=== PATIENT | male | born 1975 | race African-American/Black ===

== ENCOUNTER 2019-01-30 16:06 | Inpatient (IN) | payer OTHER, SELFPAY ==
[2019-01-30] MEDS ORDERED: Lorazepam 2 MG/ML VIAL ONE (17:24)
[2019-01-30 17:30] LABS: #Eosinphils 0.2 thou/uL (0.0-0.7); #Lymphocytes 1.1 thou/uL (1.20-3.40); #Monocytes 0.6 thou/uL (0.11-0.59); #Neutrophils 2.4 thou/uL (1.40-6.50); %Eosinophils 4.3 % (0.0-10.0); %Lymphocytes 25.8 % (21.0-51.0); %Monocytes 13.5 % (0.0-10.0); %Neutrophils 56.3 % (42.0-75.0); Hemoglobin 16.5 g/dL (14.0-18.0); Mean Corpuscular HGB CONC 32.7 g/dL (32.0-36.0); Mean Corpuscular Hemoglobin 29.7 pg (27.0-31.0); Mean Corpuscular Volume 90.8 fL (78.0-98.0); Mean Platelet Volume 9.6 fL (7.4-10.4); Platelet Count 178 thou/uL (130-400); RBC Distribution Width 11.9 % (11.5-14.5); Red Blood Cell (RBC) Count 5.56 mill/uL (4.70-6.10); White Blood Cell (WBC) Count 4.3 thou/uL (4.8-10.8)
[2019-01-30 18:01] LABS: ALT (SGPT) 23 U/L (8-55); AST (SGOT) 42 U/L (5-34); Acetaminophen Less than 6.0 mcg/mL (10.0-30.0); Albumin 4.8 g/dL (3.5-5.0); Alcohol Less than 10 mg/dL (Less than 10); Alkaline Phosphatase 40 U/L (40-150); Anion Gap 15 mmol/L (10-20); BUN (Urea Nitrogen) 15 mg/dL (8.9-20.6); Bilirubin, Total 1.2 mg/dL (0.2-1.2); Calc. Creatinine Clearance 0 mL/min (70-130); Carbon Dioxide 25 mmol/L (22-29); Chloride 101 mmol/L (98-107); Estimated GFR-MDRD 80; Globulin 3.7 g/dL (2.4-3.5); Glucose 63 mg/dL (70-105); Potassium 4.9 mmol/L (3.5-5.1); Protein, Total 8.5 g/dL (6.0-8.3); Salicylate Less than 8.0 mg/dL (15.0-30.0); Sodium 136 mmol/L (136-145)
--- NOTE | 2019-01-30 18:40 | CT ---
CT OF BRAIN PERFORMED WITHOUT CONTRAST ENHANCEMENT: 01/30/19 HISTORY: Altered mental status. History of a brain tumor. COMPARISON: 09/07/08 study. The ventricles and sulci appear within normal limits. There is a large sellar and suprasellar mass th at measures 2.6 cm in AP dimension. There is no hemorrhage. There is no shift of midline structures. The mastoid air cells are clear. There is mucosal change in both maxillary sinuses. IMPRESSION: Large sellar/suprasellar mass. No acute intracranial abnormalities. POS: CHENG
[2019-01-30] MEDS ORDERED: Ondansetron PF 4 MG/2 ML Vial IVP PRN (23:29)
[2019-01-30] MEDS ORDERED: Acetaminophen 325 MG TAB PO PRN (23:29)
[2019-01-30] MEDS ORDERED: Ondansetron ODT 4 MG TAB PO PRN (23:29)
[2019-01-31] VITALS: BMI 28.3
--- NOTE | 2019-01-31 03:35 | HP ---
PRIMARY CARE DOCTOR: Dr. Zara Soares. CODE STATUS: Full code. TIME OF EVALUATION: 10:35 p.m. CHIEF COMPLAINT: Change in mental status. HISTORY OF PRESENT ILLNESS: This is a [id number]-male patient past medical history of brain tumor, was diagnosed 1 month ago. The patient symptoms have been always having change in mental status, but the mom is stating that the patient has become gradually worsened with severe changes in mentation, the patient had a scheduled appointment for Oncology in February, but due to severity of the symptoms, they have decided to come to the ER. REVIEW OF SYSTEMS: Unable to obtain. The patient is confused. ALLERGIES: LATEX. SOME FOOD ALLERGIES REPORTED-unclear. FAMILY HISTORY: Reviewed and non contributory to current presentation. PMHX: negative other than recently diagnosed brain tumor Sx Hx: no Sx Hx Social Hx: no drugs,alcohol,smoking history. REPORTED MEDICATIONS: Unknown. PHYSICAL EXAMINATION: VITAL SIGNS: On presentation, blood pressure 139/88 with heart rate of 92, respiratory rate was 16, temperature 98.6, pain 0/10, oxygen saturation was 96% on room air. GENERAL APPEARANCE: The patient is confused, disoriented, not in acute distress. HEENT: Eyes, normal conjunctivae. . Moist oral mucosa. Anicteric. NECK: No JVD. RESPIRATORY: : Bilateral air entry. No rales. No wheezes. Symmetric expansion. CARDIOVASCULAR: Normal rate. Regular rhythm. No murmurs. No gallop. No edema. ABDOMEN: Soft. Normal bowel sounds. MUSCULOSKELETAL: Baseline range of motion and strength. No tenderness. SKIN: Warm, intact. No pallor, rash, or redness. Peripheral pulses are present. Capillary refill seems to intact. NEUROLOGIC: The patient has change in mental status, unable to fully explore. However, patient follows commands and also has bilateral glaze grinder. No significant focal weakness has been seen during my examination. PSYCHIATRIC: The patient is confused, unable to fully explore. IMAGING: EKG was reviewed. The patient has normal sinus rhythm with a rate of 83, CO 198, QRS 100, QT corrected 408, early repolarization. Brain CT was done, the patient had a large suprasellar mass. No acute intracranial abnormalities. LABORATORY DATA: Reviewed. The patient has a white count of 4.3, hemoglobin 16.5, MCV 90.8, platelet count 178. Chemistry: Sodium 136, potassium 4.9, chloride 101, carbon dioxide 25, anion gap 15, BUN 15, creatinine 1.19, GFR 80, glucose 63, calcium 10.0, total bilirubin 1.2, AST 42, ALT 23. Serum total protein 8.5, globulin 3.7, albumin globulin ratio is 1.3. TSH 1.2. ASSESSMENT AND PLAN: The patient will be placed in the hospital with following medical problems: 1. Suprasellar mass with change in mental status. The patient was pending to have a consultation with Oncology in February, but due to severity of the symptoms they had to come to the ER. We will consult Oncology, consult Neurosurgery: Follow recommendations. 2. Acute encephalopathy. This is likely secondary to intracranial mass, we will follow recommendation from specialists. As per recommendation of Neurosurgery, no steroids will be given. We will hold on that for now. 3. Deep venous thrombosis prophylaxis. Job ID: [id number] MTDD
[2019-01-31 06:49] LABS: #Eosinphils 0.2 thou/uL (0.0-0.7); #Lymphocytes 1.2 thou/uL (1.20-3.40); #Monocytes 0.5 thou/uL (0.11-0.59); #Neutrophils 2.1 thou/uL (1.40-6.50); %Basophils 0.4 % (0.0-1.0); %Lymphocytes 28.9 % (21.0-51.0); %Monocytes 12.8 % (0.0-10.0); %Neutrophils 51.9 % (42.0-75.0); Hemoglobin 15.9 g/dL (14.0-18.0); Mean Corpuscular HGB CONC 32.6 g/dL (32.0-36.0); Mean Corpuscular Hemoglobin 29.8 pg (27.0-31.0); Mean Corpuscular Volume 91.4 fL (78.0-98.0); Mean Platelet Volume 9.3 fL (7.4-10.4); Platelet Count 174 thou/uL (130-400); RBC Distribution Width 11.8 % (11.5-14.5); Red Blood Cell (RBC) Count 5.32 mill/uL (4.70-6.10)
[2019-01-31 07:10] LABS: Anion Gap 13 mmol/L (10-20); BUN (Urea Nitrogen) 15 mg/dL (8.9-20.6); Calc. Creatinine Clearance 139 mL/min (70-130); Calcium 9.6 mg/dL (7.8-10.44); Carbon Dioxide 24 mmol/L (22-29); Chloride 102 mmol/L (98-107); Estimated GFR-MDRD Greater than 90; Sodium 135 mmol/L (136-145)
[2019-01-31 07:14] LABS: Glucose 55 mg/dL (70-105)
[2019-01-31 08:07] LABS: Free T4 (Free Thyroxine) 0.8 ng/dL (0.70-1.48)
[2019-01-31 08:09] LABS: Follicle Stimulating Hormone 2.01 mIU/mL (See Ranges); Luteinizing Hormone 9.7 mIU/mL (See Ranges)
--- NOTE | 2019-01-31 09:22 | CON ---
DATE OF CONSULTATION: HISTORY OF PRESENT ILLNESS: The patient is a 43-year-old male , who presented to the emergency department for worsening altered mental status. Family is not currently at the bedside and most of the history is obtained by chart review from records from within the [facility] system. The patient reportedly developed visual and auditory hallucinations intermittently since October of 2018. He was also complaining of vision changes at that time. He presented to the [facility] ER in December 2018 for these symptoms and was admitted for further evaluation. The patient was also having concern for suicidal ideations at that time. MRI brain was done, which revealed a large suprasellar mass consistent with macroadenoma. He also had lab work done, which is notable for elevated prolactin and testosterone levels. His cortisol was normal as well as LH, FSH, free T4, and IGF. The patient was seen by Neurosurgery at that time, who recommended outpatient treatment for this mass. His psychosis was treated with Risperdal and the patient improved. He was no longer having any active SI or other psychotic features and left during that time AMA. He was arranged for outpatient followup with Neurosurgery in [place]. Following his dismissal in December, he was seen by Ophthalmology on an outpatient basis and diagnosed as bilateral hemianopsia. In January 20, 2019, the patient had worsening of his hallucinations and was brought by family to the [facility] ER for further evaluation. He was admitted to the hospitalist and his symptoms were again discussed with Neurosurgery at that time, who recommended outpatient followup. He is currently scheduled for followup with [facility], and Dr. Quintanilla on 02/10/2019. He was brought to the emergency department at [facility] for increased altered mental status and hallucinations. I am visiting the patient at the bedside. His eyes are open. He is awake, but he is not responding to any of my questions. He will move all four spontaneously. The nurses report that he has been intermittently tearful. PAST MEDICAL HISTORY: Reports he is otherwise healthy. Denies per medical records, no other reported medical history. PAST SURGICAL HISTORY: Left leg surgery, left knee surgery. SOCIAL HISTORY: The patient does not reportedly smoke, drink, or use any drugs. ALLERGIES: HE IS ALLERGIC TO SULINDAC. CURRENT MEDICATIONS: 1. Risperdal 2 mg tab one tab p.o. at bedtime. 2. Bentyl 20 mg tab one tab p.o. t.i.d. p.r.n. REVIEW OF SYSTEMS: Per HPI. PHYSICAL EXAMINATION: VITAL SIGNS: Temperature is 97.8, pulse is 86, BP is 131/84, respiration is 16, O2 is 97% on room air. CONSTITUTIONAL: The patient's eyes are open. He is awake, but he is not responding any of my questions. HEENT: Head, normocephalic and atraumatic. Eyes, PERRLA. Extraocular movements intact. ENT, oral mucosa appears moist, intact. CARDIOVASCULAR: Regular rate and rhythm. PULMONARY: The patient has symmetric chest expansion. No evidence of dyspnea. MUSCULOSKELETAL: No obvious deformities. He is seen moving all four spontaneously. NEURO: The patient is not responding to my questions, so unable to assess orientation. He is seen moving all four spontaneously and does not appear to have any focal neurologic deficits. ASSESSMENT AND PLAN: This is a 43-year-old male, who has had intermittent psychotic features since October as well as a recent diagnosis of pituitary macroadenoma. His outpatient followup currently scheduled with Neurosurgery on 02/10/2019. However, considering increasing altered mental status, his family brought him to the emergency department for further evaluation. We will plan to repeat MRI of the brain with and without contrast, as well re-submit a pituitary lab panel. We feel that his psychosis is less unlikely to be related to his pituitary lesion but will evaluate further. Discussed this plan with Dr. Charlton, who is in agreement. Job ID: [id number] MTDD
[2019-01-31] MEDS: Dextrose 5 %-0.45 % NaCl 1,000 ML IV SCH ×2 (09:33→23:48)
[2019-01-31] MEDS ORDERED: Dextrose 50% Abboject 50 ML SYRINGE SLOW IVP SCH (09:45)
--- NOTE | 2019-01-31 14:27 | PDOC.PN ---
- Subjective Encounter Start Date: 01/31/19 Encounter Start Time: 14:26 Subjective: refuses to eat or talk -: sitter at bedside - Objective Resuscitation Status - Order Detail: 01/30/19 23:29 Resuscitation Status Routine Resuscitation Status: FULL: Full Resuscitation MAR Reviewed: Yes Vital Signs & Weight: Vital Signs (12 hours) Temp Pulse Resp BP Pulse Ox 01/31/19 11:31 98.3 F 85 16 100/65 97 01/31/19 08:00 97 01/31/19 07:41 97.6 F 86 18 120/79 97 Weight Weight 220 lb 7.396 oz I&O: 01/30/19 01/31/19 02/01/19 06:59 06:59 06:59 Intake Total 400 Balance 400 Result Diagrams: 01/31/19 05:47 01/31/19 05:47 Additional Labs: Accuchecks 01/31/19 01/30/19 09:58 16:30 POC Glucose 82 67 L Phys Exam - Physical Examination Constitutional: NAD awake but distracted .not answering any Qs HEENT: PERRLA, moist MMs, sclera anicteric, oral pharynx no lesions Neck: no nodes, no JVD, supple, full ROM Respiratory: no wheezing, no rales, no rhonchi, clear to auscultation bilateral Cardiovascular: RRR, no significant murmur Gastrointestinal: soft, non-tender, no distention, positive bowel sounds Musculoskeletal: no edema, pulses present Neurological: moves all 4 limbs Deviation from normal: labile affect.agitated an dthen started to cry suddenly Skin: no rash Dx/Plan (1) Altered mental status Code(s): R41.82 - ALTERED MENTAL STATUS, UNSPECIFIED Status: Acute (2) Pituitary adenoma Code(s): D35.2 - BENIGN NEOPLASM OF PITUITARY GLAND Status: Chronic - Plan Oncology and NS eval . -: Hd stable -: start IVF due to low BS.D5 1/2 NS.pt refuses to eat -: will get Recent MRI result from [facility] * . Review of Systems - Review of Systems Other: can not be obtained due to non cooperation as tangential thinking - Medications/Allergies Allergies/Adverse Reactions: Allergies Allergy/AdvReac Type Severity Reaction Status Date / Time No Known Drug Allergies Allergy Verified 01/30/19 23:58 Medications: Current Medications Acetaminophen (Tylenol) 650 mg PO Q4H PRN PRN Reason: Headache/Fever/Mild Pain (1-3) Dextrose/Sodium Chloride (D5 1/2 Ns) 1,000 mls @ 75 mls/hr IV .[id number] [facility] Last Admin: 01/31/19 09:33 Dose: 1,000 mls Ondansetron HCl (Zofran Odt) 4 mg PO Q6H PRN PRN Reason: Nausea/Vomiting Ondansetron HCl (Zofran) 4 mg IVP Q6H PRN PRN Reason: Nausea/Vomiting
[2019-01-31] MEDS ORDERED: Ziprasidone 20 MG VIAL ONE (19:44)
[2019-01-31] MEDS ORDERED: Ziprasidone 20 MG VIAL IM SCH (19:45)
[2019-01-31] MEDS ORDERED: Sterile Water 10 ML VIAL FS PRN (19:46)
[2019-02-01] MEDS ORDERED: Dextrose 50% Abboject 50 ML SYRINGE SLOW IVP SCH (06:45)
--- NOTE | 2019-02-01 08:00 | CON ---
DATE OF CONSULTATION: 02/01/2019 SUBJECTIVE: The patient is seen, I agree with Yenifer Ochoa's evaluation on 01/31/2019. The patient is a 43-year-old male with recently diagnosed pituitary macroadenoma with elevated prolactin and testosterone, that may have been diagnosed incidentally at [facility] recently. His predominant issue relates to psychosis and behavioral issues. We did consider obtaining a new MRI scan on this admission, but the patient was not cooperative for this. IMPRESSION AND PLAN: The macroadenoma is not directly causing his altered mental status or psychosis. I have not seen this in hyperprolactinemia. There are no acute neurosurgical indications and I think it is unlikely that medical treatment of his hyperprolactinemia has any relevance to his current psychiatric issues. We will sign off and agree with outpatient Neurosurgery evaluation for elective treatment of his pituitary prolactin-secreting tumor and he will also need endocrine followup for this. Job ID: [id number]
[2019-02-01] MEDS ORDERED: Ziprasidone 20 MG VIAL IM PRN (08:40)
[2019-02-01] MEDS: Dextrose 5 %-0.45 % NaCl 1,000 ML IV SCH ×2 (12:48→16:40)
--- NOTE | 2019-02-01 13:10 | PDOC.PN ---
- Subjective Encounter Start Date: 02/01/19 Encounter Start Time: 13:01 Subjective: pt refuses to talk much.refusing to eat.combative & leaves room -: "i feel OK' - Objective Resuscitation Status - Order Detail: 01/30/19 23:29 Resuscitation Status Routine Resuscitation Status: FULL: Full Resuscitation MAR Reviewed: Yes Vital Signs & Weight: Vital Signs (12 hours) Temp Pulse Resp BP Pulse Ox 02/01/19 11:00 98.1 F 82 18 122/82 100 02/01/19 08:05 99 02/01/19 07:15 97.5 F L 86 18 119/82 99 Weight Weight 220 lb 7.396 oz I&O: 01/31/19 02/01/19 02/02/19 06:59 06:59 06:59 Intake Total 400 1375 Balance 400 1375 Result Diagrams: 01/31/19 05:47 01/31/19 05:47 Additional Labs: Accuchecks 02/01/19 02/01/19 02/01/19 12:03 07:54 06:13 POC Glucose 68 L 116 H 64 L 01/31/19 20:36 POC Glucose 110 Laboratory Tests 01/31/19 07:18 Prolactin 68.29 H Phys Exam - Physical Examination Constitutional: NAD HEENT: PERRLA, moist MMs, sclera anicteric, oral pharynx no lesions Neck: no JVD Respiratory: no wheezing, no rales Cardiovascular: RRR, no significant murmur Gastrointestinal: soft, non-tender, no distention, positive bowel sounds Musculoskeletal: no edema Neurological: moves all 4 limbs (won't let me finish exam) Deviation from normal: won't let me examine Dx/Plan (1) Altered mental status Code(s): R41.82 - ALTERED MENTAL STATUS, UNSPECIFIED Status: Acute (2) Pituitary adenoma Code(s): D35.2 - BENIGN NEOPLASM OF PITUITARY GLAND Status: Chronic - Plan DVT proph w/SCDs Accd to NS the behavioral changes are not due to Pituitary tumor -: will get [facility] -: cont D5 1/2 ns to prevent hypoglycemia.Pt encouraged to eat -: Hd stable.prn Geodon to prevent harm to self & others.Calm for now * . Review of Systems - Review of Systems Other: cam not be obtained as pt won't amswer any of my Qs - Medications/Allergies Allergies/Adverse Reactions: Allergies Allergy/AdvReac Type Severity Reaction Status Date / Time No Known Drug Allergies Allergy Verified 01/30/19 23:58 Medications: Current Medications Acetaminophen (Tylenol) 650 mg PO Q4H PRN PRN Reason: Headache/Fever/Mild Pain (1-3) Dextrose/Sodium Chloride (D5 1/2 Ns) 1,000 mls @ 75 mls/hr IV .[id number] [facility] Last Admin: 02/01/19 12:48 Dose: Not Given Ondansetron HCl (Zofran Odt) 4 mg PO Q6H PRN PRN Reason: Nausea/Vomiting Ondansetron HCl (Zofran) 4 mg IVP Q6H PRN PRN Reason: Nausea/Vomiting Sterile Water (Water For Injection) 1.2 ml FS PRN PRN PRN Reason: RECONSTITUTION Ziprasidone (Geodon) 10 mg IM Q4H PRN PRN Reason: Agitation
[2019-02-02] MEDS: Dextrose 5 %-0.45 % NaCl 1,000 ML IV SCH ×2 (02:21→15:41)
[2019-02-02 07:48] VITALS: BP 108/68; TEMP 97.5
--- NOTE | 2019-02-02 12:28 | PDOC.PN ---
- Subjective Encounter Start Date: 02/02/19 Encounter Start Time: 12:27 Subjective: feels much better. back to his normal self -: mother at bedside. Pt is AAOX3 and no behavioral issues -: understands the lengthy conversatio regarding medical issues - Objective Resuscitation Status - Order Detail: 01/30/19 23:29 Resuscitation Status Routine Resuscitation Status: FULL: Full Resuscitation MAR Reviewed: Yes Vital Signs & Weight: Vital Signs (12 hours) Temp Pulse Resp BP Pulse Ox 02/02/19 07:46 97.5 F L 74 16 108/68 98 02/02/19 04:00 97.7 F 76 16 112/77 99 Weight Weight 220 lb 7.396 oz I&O: 02/01/19 02/02/19 02/03/19 06:59 06:59 06:59 Intake Total 1375 1595 Balance 1375 1595 Result Diagrams: 01/31/19 05:47 01/31/19 05:47 Additional Labs: Accuchecks 02/02/19 02/02/19 02/01/19 11:13 05:00 20:08 POC Glucose 99 86 87 02/01/19 16:49 POC Glucose 75 Phys Exam - Physical Examination Constitutional: NAD HEENT: PERRLA, moist MMs, sclera anicteric, oral pharynx no lesions Neck: no nodes, no JVD, supple, full ROM Respiratory: no wheezing, no rales, no rhonchi, clear to auscultation bilateral Cardiovascular: RRR, no significant murmur, no rub Gastrointestinal: soft, non-tender, no distention, positive bowel sounds Musculoskeletal: no edema, pulses present Neurological: non-focal, normal sensation, moves all 4 limbs Psychiatric: normal affect, A&O x 3 Skin: no rash Dx/Plan (1) Altered mental status Code(s): R41.82 - ALTERED MENTAL STATUS, UNSPECIFIED Status: Acute Comment: resolved. Acute psychosis (2) Pituitary adenoma Code(s): D35.2 - BENIGN NEOPLASM OF PITUITARY GLAND Status: Chronic - Plan DVT proph w/SCDs reconsult [facility] as pt is no longer with SI or HI -: may be able to go home -: discussed w SHYANNE and he has appointment on 02/10/[address] Quintanilla -: HD stable. -: DC home if cleared by [facility] w OP f/u * . Review of Systems - Review of Systems Constitutional: negative: fever, chills, sweats, weakness, malaise, other ENT: negative: Ear Pain, Ear Discharge, Nose Pain, Nose Discharge, Nose Congestion, Mouth Pain, Mouth Swelling, Throat Pain, Throat Swelling, Other Respiratory: negative: Cough, Dry, Shortness of Breath, Hemoptysis, SOB with Excertion, Pleuritic Pain, Sputum, Wheezing Gastrointestinal: negative: Nausea, Vomiting, Abdominal Pain, Diarrhea, Constipation, Melena, Hematochezia, Other Genitourinary: negative: Dysuria, Frequency, Incontinence, Hematuria, Retention , Other Musculoskeletal: negative: Neck Pain, Shoulder Pain, Arm Pain, Back Pain, Hand Pain, Leg Pain, Foot Pain, Other Skin: negative: Rash, Lesions, Gallo, Bruising, Other Neurological: negative: Weakness, Numbness, Incoordination, Change in Speech, Confusion, Seizures, Other - Medications/Allergies Allergies/Adverse Reactions: Allergies Allergy/AdvReac Type Severity Reaction Status Date / Time No Known Drug Allergies Allergy Verified 01/30/19 23:58 sulindac Allergy Verified 02/01/19 17:32 Medications: Current Medications Acetaminophen (Tylenol) 650 mg PO Q4H PRN PRN Reason: Headache/Fever/Mild Pain (1-3) Dextrose/Sodium Chloride (D5 1/2 Ns) 1,000 mls @ 75 mls/hr IV .[id number] [facility] Last Admin: 02/02/19 02:21 Dose: Not Given Ondansetron HCl (Zofran Odt) 4 mg PO Q6H PRN PRN Reason: Nausea/Vomiting Ondansetron HCl (Zofran) 4 mg IVP Q6H PRN PRN Reason: Nausea/Vomiting Sterile Water (Water For Injection) 1.2 ml FS PRN PRN PRN Reason: RECONSTITUTION Ziprasidone (Geodon) 10 mg IM Q4H PRN PRN Reason: Agitation
--- NOTE | 2019-02-03 03:53 | DIS ---
DATE OF ADMISSION: 01/30/2019 DATE OF DISCHARGE: 02/02/2019 PRIMARY CARE PHYSICIAN: Dr. Zara Soares. DISCHARGE DIAGNOSES: 1. Altered mental status. 2. Acute psychosis, resolved. 3. Pituitary tumor, likely a prolactin secreting and testosterone secreting tumor. DISCHARGE MEDICATIONS: None. IN-HOUSE CONSULTATION: Neurosurgery, Dr. Charlton. IN-HOUSE PROCEDURES: CT scan of the brain which shows a large sellar suprasellar mass without acute intracranial abnormalities. HISTORY OF PRESENT ILLNESS: Mr. Newton is a 43-year-old male with recent diagnosis of a pituitary tumor, who presented to the emergency room with complaints of changes in mental status. His mom stated that his mentation has been getting worse and she could not take care of him in the house. They do have upcoming appointment with Neurosurgery and Oncology, but she wanted him to get checked out, so brought him to the ER. In the ER, a CT scan confirmed the finding of suprasellar mass. This was diagnosed at [facility] recently. He was admitted with a presumptive diagnosis of acute encephalopathy. He was hemodynamically stable and labs were unremarkable. Please see admission history and physical dictated by Dr. Noriega from 01/31/2019. HOSPITAL COURSE: The patient was seen by Neurosurgery and their recommendation was that his presentation was likely psychiatric illness and not related to his suprasellar mass which is a prolactin secreting and testosterone secreting tumor. Records from MRI done at outpatient facility at [facility] were requested. Repeat MRI was ordered, but the patient was not able to get it done because of acute psychosis. Neurosurgery recommended to see him in the outpatient setting. [facility] was consulted once he was medically cleared. They saw the patient yesterday and he refused to talk to them exhibiting extensive behavioral agitation and withdrawn behavior. For some reason, this morning, his psychosis has resolved and he is back to being himself. He is following commands. He is asking appropriate questions. He is answering questions and he understands his disease prognosis and knows his followup appointments. Mother is at bedside. I discussed this with Dr. Charlton's PA, Yenifer and she reported that the patient has an upcoming appointment with Dr. Quintanilla on the of this month for followup for his pituitary tumor. [facility] was reconsulted and they re-evaluated the patient and cleared him for discharge home as he is clearly back to being his normal self without any suicidal or homicidal ideation. I have given him strict instructions as well as to his mother not to let him drive as he has risk for accident because of his psychosis and behavioral changes recently and because of his pituitary tumor. He also has an upcoming appointment with clinical faculty. He was seen and examined prior to discharge. Please see hospitalist progress note from today's date for further details including [id number] interaction. TIME SPENT: Total time spent in the discharge of this patient, 28 minutes. Job ID: [id number]
== END 2019-02-02 19:05 | disposition home or self-care (01) | DRG 885 ==
LOC: ERS 16:06 → SURG A 21:57 → OBSVTOIN 21:57 → T4-A 02-01 15:56
PROVIDERS: ADMIT Hospitalist; ATTEND Hospitalist
DX: F23 Brief psychotic disorder (principal); G93.40 Encephalopathy, unspecified; D35.2 Benign neoplasm of pituitary gland; Z88.8 Allergy status to other drugs, medicaments and biological substances
CPT/HCPCS: 36415; 36416; 70450; 80048; 80053; 80307; 82533; 83001; 83002; 84146; 84439; 84443; 85025; 93005; 96374; J2060; J3486

== ENCOUNTER 2019-02-05 16:58 | Emergency (ER) | payer OTHER ==
[2019-02-05 18:16] LABS: ALT (SGPT) 21 U/L (8-55); AST (SGOT) 35 U/L (5-34); Acetaminophen Less than 6.0 mcg/mL (10.0-30.0); Alcohol Less than 10 mg/dL (Less than 10); Alkaline Phosphatase 40 U/L (40-150); Anion Gap 12 mmol/L (10-20); BUN (Urea Nitrogen) 15 mg/dL (8.9-20.6); Bilirubin, Total 0.8 mg/dL (0.2-1.2); CK (CPK) 914 U/L (30-200); Calc. Creatinine Clearance 0 mL/min (70-130); Calcium 9.3 mg/dL (7.8-10.44); Carbon Dioxide 23 mmol/L (22-29); Chloride 107 mmol/L (98-107); Estimated GFR-MDRD 88; Globulin 3.4 g/dL (2.4-3.5); Glucose 69 mg/dL (70-105); Potassium 4.4 mmol/L (3.5-5.1); Protein, Total 7.4 g/dL (6.0-8.3); Salicylate Less than 8.0 mg/dL (15.0-30.0); Sodium 138 mmol/L (136-145)
[2019-02-05 18:19] LABS: Hemoglobin 14.6 g/dL (14.0-18.0); Mean Corpuscular HGB CONC 31.2 g/dL (32.0-36.0); Mean Corpuscular Hemoglobin 29.8 pg (27.0-31.0); Mean Corpuscular Volume 95.7 fL (78.0-98.0); Mean Platelet Volume 9.4 fL (7.4-10.4); Platelet Count 145 thou/uL (130-400); RBC Distribution Width 11.7 % (11.5-14.5); White Blood Cell (WBC) Count 3.8 thou/uL (4.8-10.8)
[2019-02-05 18:27] LABS: Eosinophils 5 % (0-10); Lymphocytes 35 % (21-51); MDiff Complete? YES; Monocytes 5 % (0-10); Neutrophil 55 % (42-75); Platelet Morphology Comment Appears Adequate; RBC Morphology Normal
[2019-02-05] MEDS ORDERED: risperiDONE 1 MG TAB ONE (18:27)
[2019-02-05 19:57] LABS: Bilirubin Small (Negative); Blood, Urine Negative (Negative); Clarity CLEAR (Clear); Glucose, Urine (Dipstick) Negative (Negative); Leukocyte Negative (Negative); Nitrite Negative (Negative); Protein, Urine (Dipstick) 30 mg/dL (Neg-Trace); Specific Gravity, Urine 1.037 (1.002-1.036)
[2019-02-05 19:58] LABS: Bacteria/HPF None Seen HPF (None Seen); Hyaline Casts/LPF 7-10 HYALINE CAST LPF (0-3 Hyaline); Pathc Cast-AUWi Flag 0.54 (0-2.49); RBC/HPF 0-3 HPF (0-3); Squamous Epithelial None Seen HPF (0-3); WBC/HPF 0-3 HPF (0-3)
[2019-02-05 20:13] LABS: Amphetamine Not Detected (NotDetected); Barbiturates Screen Not Detected (NotDetected); Benzodiazepine Screen Not Detected (NotDetected); Cocaine Metabolite Screen Not Detected (NotDetected); Medtox Control Line Valid? VALID (VALID); Medtox Reader # READER 4; Methadone Not Detected (NotDetected); Methamphetamine Not Detected (NotDetected); Opiate Screen Not Detected (NotDetected); Oxycodone Screen Not Detected (NotDetected); Phencyclidine (PCP) Not Detected (NotDetected); THC/Cannabinoid Screen Not Detected (NotDetected); Tricyclic Screen Not Detected (NotDetected)
[2019-02-05] MEDS ORDERED: Haloperidol Lactate 5 MG/ML VIAL ONE (20:47)
== END 2019-02-06 10:31 ==
LOC: ERS 16:58
DX: F29 Unspecified psychosis not due to a substance or known physiological condition (principal); F32.9 Major depressive disorder, single episode, unspecified
CPT/HCPCS: 36415; 80053; 80306; 80307; 81003; 81015; 82550; 84443; 85025; 96361; 96374; J1630

== ENCOUNTER 2020-04-26 13:43 | Emergency (ER) | payer OTHER, SELFPAY ==
[2020-04-26 14:18] LABS: #Basophils 0.1 thou/uL (0.0-0.2); #Eosinphils 0.2 thou/uL (0.0-0.7); #Lymphocytes 1.3 thou/uL (1.20-3.40); #Monocytes 0.4 thou/uL (0.11-0.59); #Neutrophils 1.8 thou/uL (1.40-6.50); %Basophils 1.4 % (0.0-1.0); %Eosinophils 6.8 % (0.0-10.0); %Lymphocytes 34.4 % (21.0-51.0); %Monocytes 9.7 % (0.0-10.0); %Neutrophils 47.8 % (42.0-75.0); Hemoglobin 14.5 g/dL (14.0-18.0); Mean Corpuscular Hemoglobin 29.2 pg (27.0-31.0); Mean Corpuscular Volume 91.3 fL (78.0-98.0); Mean Platelet Volume 8.9 fL (7.4-10.4); Platelet Count 166 thou/uL (130-400); RBC Distribution Width 12.2 % (11.5-14.5); Red Blood Cell (RBC) Count 4.95 mill/uL (4.70-6.10); White Blood Cell (WBC) Count 3.7 thou/uL (4.8-10.8)
[2020-04-26 14:42] LABS: ALT (SGPT) 27 U/L (8-55); AST (SGOT) 59 U/L (5-34); Albumin 3.7 g/dL (3.5-5.0); Alkaline Phosphatase 49 U/L (40-110); Anion Gap 11 mmol/L (10-20); BUN (Urea Nitrogen) 9 mg/dL (8.9-20.6); Bilirubin, Total 0.7 mg/dL (0.2-1.2); Calc. Creatinine Clearance 0 mL/min (70-130); Calcium 8.8 mg/dL (7.8-10.44); Carbon Dioxide 22 mmol/L (22-29); Chloride 103 mmol/L (98-107); Estimated GFR-MDRD 87; Globulin 3.3 g/dL (2.4-3.5); Glucose 72 mg/dL (70-105); Potassium 4.1 mmol/L (3.5-5.1); Sodium 132 mmol/L (136-145)
--- NOTE | 2020-04-26 15:04 | ULT ---
ULTRASOUND DOPPLER DUPLEX VENOUS BILATERAL LOWER EXTREMITIES: DATE: 04/26/2020 HISTORY: 44-year-old male with bilateral lower extremity pain and swelling TECHNIQUE: Grayscale, color-flow, and spectral analysis, of major veins of bilateral lower extremities. FINDINGS: There is demonstration of blood flow with normal compressibility, of the bilateral common femoral, pr ofunda femoral, greater saphenous, femoral, popliteal, and posterior tibial, veins. There is soft tissue edema in the bilateral calves and left posterior knee. IMPRESSION: 1) Negative. No deep venous thrombosis of bilateral lower extremities. 2) bilateral lower extremity soft tissue edema.
--- NOTE | 2020-05-01 11:26 | EKG ---
Test Reason : Blood Pressure : / mmHG Vent. Rate : 069 BPM Atrial Rate : 069 BPM P-R Int : 198 ms QRS Dur : 102 ms QT Int : 372 ms P-R-T Axes : 052 066 049 degrees QTc Int : 398 ms Normal sinus rhythm Normal ECG Confirmed by VIKTORIA WILKERSON DO ([id number]), multimedia editor MARION ESCOBAR ([id number]) on 05/01/2020 11:26:04 AM Referred By: Confirmed By:VIKTORIA WILKERSON DO
== END 2020-04-26 15:36 | disposition home or self-care (01) ==
LOC: ERS 13:43
DX: R60.0 Localized edema (principal); F32.9 Major depressive disorder, single episode, unspecified
CPT/HCPCS: 36415; 80053; 83880; 85025; 93005; 93970